=== PATIENT | female | born 1985 | race Caucasian/White ===

== ENCOUNTER 2023-11-23 09:50 | Emergency (ER) | payer BC ==
[~2023-11-23] VITALS: Ht 154.9 cm; Wt 77.0 kg
[2023-11-23 10:55] VITALS: TEMP 99.3
[2023-11-23 11:05] LABS: BASOPHILS % (AUTO) 0.6 % (0-1); EOSINOPHILS % (AUTO) 0.3 % (0-6); HEMATOCRIT 37.9 % (35.0-45.0); HEMOGLOBIN 12.5 g/dl (12.0-16.0); LYMPHOCYTES # (AUTO) 2.5 X10'3 (1.1-4.8); LYMPHOCYTES % (AUTO) 50.6 % (21-51); MEAN CORPUSCULAR HEMOGLOBIN 28.5 PG (27.0-31.0); MEAN CORPUSCULAR HGB CONC 33.1 g/dL (33.0-36.5); MEAN CORPUSCULAR VOLUME 86.3 FL (78-98); MONOCYTES # (AUTO) 0.5 X10'3 (0-0.9); MONOCYTES % (AUTO) 9.1 % (2-12); NEUTROPHILS % (AUTO) 39.4 % (42-75); PLATELET COUNT 80 X10'3 (140-440); RED BLOOD COUNT 4.39 X10'6 (4.20-5.60); RED CELL DISTRIBUTION WIDTH 15.5 % (11.5-14.5)
[2023-11-23 11:11] LABS: BILIRUBIN,URINE SMALL (Neg); CLARITY,URINE CLEAR (Clear); COLOR,URINE YELLOW (Yellow); GLUCOSE, URINE NEGATIVE (Neg); KETONES,URINE NEGATIVE (Neg); LEUKOCYTE ESTERASE ,URINE NEGATIVE (Neg); NITRITES, URINE NEGATIVE (Neg); OCCULT BLOOD,URINE MODERATE (Neg); PROTEIN,URINE NEGATIVE (Neg); UA COLLECTION TYPE CLN CATCH MIDSTREAM
[2023-11-23 11:12] LABS: URINE HCG NEGATIVE (NEG)
[2023-11-23 11:19] LABS: RBC,URINE 50-100 /HPF (0-2); SQUAMOUS EPITHELIAL CELL,UR FEW /LPF (FEW); WBC,URINE 0-4 /HPF (0-4)
[2023-11-23 11:20] LABS: BACTERIA,URINE FEW /HPF (Neg)
[2023-11-23 11:22] LABS: ALANINE AMINOTRANSFERASE 705 U/L (12-78); ALBUMIN 3.1 G/DL (3.4-5.0); ALKALINE PHOSPHATASE 164 IU/L (46-116); ANION GAP 8 (8-16); ASPARTATE AMINO TRANSFERASE 378 U/L (10-37); BILIRUBIN,TOTAL 4.8 MG/DL (0.1-1.0); BLOOD UREA NITROGEN 8 MG/DL (7-18); BUN/CREATININE RATIO 12.5 (10.0-20.0); CALCIUM 9.4 MG/DL (8.5-10.1); CHLORIDE 103 MMOL/L (99-107); CREATININE 0.64 MG/DL (0.40-0.90); GLUCOSE 89 MG/DL (70-104); LIPASE 42 U/L (16-77); POTASSIUM 4.2 MMOL/L (3.5-5.1); SODIUM 138 MMOL/L (135-145); TOTAL CARBON DIOXIDE 27.3 MMOL/L (24-32); eCRCL 91 ML/MIN; eGFR > 90 ML/MIN
[2023-11-23 11:24] LABS: ALBUMIN/GLOBULIN RATIO 0.9 (1.1-1.5); TOTAL PROTEIN 6.4 G/DL (6.4-8.2)
[2023-11-23] MEDS ORDERED: iohexol 300mg/ml 100ml inj. ONE (11:45)
[2023-11-23 11:53] LABS: LACTATE DEHYDROGENASE 565 U/L (81-234)
[2023-11-23] MEDS: normal saline 1000ml 1,000 ML IV ONE (11:58)
[2023-11-23 12:33] LABS: PLATELET ESTIMATE DECREASED; SMUDGE CELLS 2+; TOTAL CELLS COUNTED 100
[2023-11-23 15:06] VITALS: BP 111/71; PULSE 118; RESP 14; O2SAT 95
[2023-11-26 06:06] LABS: HBSAG SCREEN Negative (Negative); HEP A AB, IGM Negative (Negative); HEP B CORE AB, IGM Negative (Negative); HEPATITIS C VIRUS ANTIBODY Non Reactive (Non Reactive)
== END 2023-11-23 15:09 | disposition home or self-care (01) ==
LOC: ER 09:51
DX: R74.01 Elevation of levels of liver transaminase levels (principal); Z20.822 Contact with and (suspected) exposure to COVID-19; E80.6 Other disorders of bilirubin metabolism; R16.1 Splenomegaly, not elsewhere classified; R53.83 Other fatigue; R53.1 Weakness
CPT/HCPCS: 36415; 74177; 76700; 80053; 80074; 81001; 81025; 83615; 83690; 85007; 85025; 87811; 96360; 99285; J7030; Q9967